=== PATIENT | male | born 1990 | race African-American/Black ===

== ENCOUNTER 2019-10-24 19:49 | Emergency (ER) | payer OTHER ==
[~2019-10-24] VITALS: Ht 175.3 cm; Wt 88.5 kg
[~2019-10-24 19:49] MED LIST: NOHOMEMEDICATIONS
[2019-10-24 21:10] LABS: ABSOLUTE NEUTROPHILS 3.2 thou/uL (1.4-8.2); BASOPHILS 0.8 % (0.0-2.0); EOSINOPHILS 2.2 % (0.0-3.0); HEMATOCRIT 45.4 % (42.0-52.0); HEMOGLOBIN 15.2 gm/dL (14.0-18.0); LYMPHOCYTES 35.8 % (24.0-44.0); MCH 28.3 pg (26.0-34.0); MCHC 33.6 g/dL (28.0-37.0); MCV 84.4 fL (80.0-100.0); MONOCYTES 10.3 % (1.0-8.0); PLATELET COUNT 220 thou/uL (150-400); POLYS 50.9 % (36.0-66.0); RBC 5.37 mil/uL (4.50-6.00); RDW 13.8 % (10.5-14.5); WBC 6.3 thou/uL (4.0-11.0)
[2019-10-24 21:22] LABS: CALCIUM 9.1 mg/dL (8.5-10.1); POTASSIUM 3.4 mmol/L (3.5-5.1)
[2019-10-24 21:53] VITALS: BP 135/79
--- NOTE | 2019-10-25 08:14 | EKG ---
[facility] [place] [address] ELECTROCARDIOGRAM REPORT Name: GEORGIE ORRYAMIL Room #: [facility]#: [id number] Admission: 10/24/19 Attend Phys: Discharge: 10/24/19 Date of : 89 Report #: [id number] THIS REPORT FOR: cc: PHYLICIA - Ana family physician/PCP PHYLICIA - Ana family physician/PCP Fredi Pizarro MD [facility] THIS REPORT FOR: //name// [facility] ED Test Date: 2019-10-24 Test Time: 20:48:03 Pat Name: YAMIL JACQUES Department: Room: Gender: Compound Specialist: : 1990 Requested By: Josse Steiner Order Number: [id number] MD: Fredi Pizarro Measurements Intervals [place] Rate: 54 P: 76 MO: 132 QRS: 38 QRSD: 106 T: 43 QT: 419 QTc: 398 Interpretive Statements Sinus rhythm RSR' in V1 or V2, probably normal variant ST elev, probable normal early repol pattern No previous ECG available for comparison Electronically Signed On 10-25-2019 8:12:18 CDT by Fredi Pizarro [email or web address] <ELECTRONICALLY SIGNED> By: Fredi Pizarro MD, FACC 10/25/19 0812 [id number] 47 Fredi Pizarro MD, [facility] /EPI
== END 2019-10-24 21:55 | disposition home or self-care (01) ==
LOC: ER 19:49
PROVIDERS: Emergency Medicine
DX: R06.00 Dyspnea, unspecified (principal); R06.02 Shortness of breath